=== PATIENT | male | born 1955 | race Caucasian/White ===

== ENCOUNTER 2018-12-28 05:14 | Observation (INO) | payer OTHER ==
[2018-12-28] MEDS ORDERED: MORPHINE 4 MG/ML SYR ONE (05:51)
[2018-12-28] MEDS ORDERED: ONDANSETRON 4 MG/2 ML VIAL ONE (05:52)
[2018-12-28 06:06] LABS: Protime INR 1.21
[2018-12-28 06:07] LABS: Absolute Lymphocytes (CBC) 1.6 K/uL (0.7-4.9); Absolute Monocytes 0.8 K/uL (0.1-1.3); Absolute Neutrophil 6.4 K/uL (1.8-8.0); Basophils % 0.5 % (0-1.3); Eosinophils % 1.4 % (0-4.4); Lymphocytes % 17.6 % (15.3-44.8); MPV 10.6 fL (7.6-11.3); Monocytes % 9.2 % (3.3-12.3); RBC Red Blood Cell Count 4.49 M/uL (4.33-5.43)
[2018-12-28 06:10] LABS: ALT/SGPT 26 U/L (12-78); AST/SGOT 18 U/L (15-37); Albumin 3.6 g/dL (3.4-5.0); Alkaline Phosphatase 65 U/L (45-117); BUN Blood Urea Nitrogen 14 mg/dL (7-18); Bicarbonate 24 mmol/L (21-32); Bilirubin Direct 0.4 mg/dL (0-0.2); Bilirubin Total 1.4 mg/dL (0.2-1.0); Glucose Level 133 mg/dL (74-106); Magnesium 1.8 mg/dL (1.8-2.4); NT PRO-BNP 91 pg/mL (<125); Potassium 3.8 mmol/L (3.5-5.1); Sodium Level 141 mmol/L (136-145); Troponin (Emerg Dept Use Only) < 0.02 ng/mL (0.0-0.045)
[2018-12-28] MEDS ORDERED: METHYLPREDNISOLONE 125 MG INJ ONE (06:45)
[2018-12-28] MEDS ORDERED: KETOROLAC 30 MG/ML INJ ONE (06:45)
[2018-12-28 07:39] LABS: Blood Morphology Comment NOT SEEN (NOT SEEN); Platelet Estimate DECR; Urine White Blood Cell Casts OK
--- NOTE | 2018-12-28 09:21 | EKG ---
Test Date: 2018-12-28 Test Time: 05:24:45 Civil Engineer Helper: JAX MEASUREMENT RESULTS: Intervals: Rate: 85 AL: 166 QRSD: 94 QT: 352 QTc: 418 [place]: P: 64 AL: 166 QRS: 45 T: 56 INTERPRETIVE STATEMENTS: Normal sinus rhythm Normal ECG Compared to ECG 01/06/2014 16:00:37 Early repolarization no longer present Electronically Signed On 12-28-18 09:21:03 CDT by Stone Guevara
--- NOTE | 2018-12-28 11:13 | RAD REPORT ---
EXAM DESCRIPTION: RAD - Chest Single View - 12/28/2018 6:20 am CLINICAL HISTORY: CHEST PAIN Chest pain. COMPARISON: CHEST PA AND LAT 2 VIEW dated 01/06/2014; CHEST PA AND LAT 2 VIEW dated 12/22/2010; CHEST PA AND LAT 2 VIEW dated 02/13/1997 FINDINGS: Portable technique limits examination quality. The lungs are emphysematous but grossly clear. The heart is normal in size. No displaced fractures. IMPRESSION: COPD.
--- NOTE | 2018-12-28 11:30 | ER ---
Nurse's Notes [facility] Name: Radu Coffey Age: 63 yrs Sex: Male : 1955 Arrival Date: 12/28/2018 Time: 05:16 Bed 18 Private MD: Martin Patel V Diagnosis: Chest pain, unspecified Presentation: 12/28 05:21 Presenting complaint: Patient states: that he is having chest pain that radiates up towards his collar bones, is shaky, and unalbe to take a deep breath. Denies any nausea or vomiting. Stopped smoking 10 days ago. Transition of care: patient was not received from another setting of care. Onset of symptoms was December 27, 2018. Risk Assessment: Do you want to hurt yourself or someone else? Patient reports no desire to harm self or others. Initial Sepsis Screen: Does the patient meet any 2 criteria? HR > 90 bpm. No. Patient's initial sepsis screen is negative. Does the patient have a suspected source of infection? No. Patient's initial sepsis screen is negative. Care prior to arrival: Medication(s) given: Tylenol, last at 0200. 05:21 Method Of Arrival: Ambulatory 05:21 Acuity: MOIRA 3 fc Historical: - Allergies: 05:26 Sulfa (Sulfonamide Antibiotics); fc - Home Meds: 05:26 omeprazole 20 mg Oral cpDR 1 cap once daily [Active]; fc - PMHx: 05:26 asbestosis; Cirrhosis; GALLSTONES; hepatitis B; Pleurisy; fc - PSHx: 05:26 Appendectomy; fc - Immunization history:: Last tetanus immunization: up to date Flu vaccine is up to date. - Social history:: Smoking status: Patient uses tobacco products, Patient uses street drugs, marijuana, Patient/guardian denies using alcohol. - Ebola Screening: : Patient negative for fever greater than or equal to 101.5 degrees Fahrenheit, and additional compatible Ebola Virus Disease symptoms Patient denies exposure to infectious person Patient denies travel to an Ebola-affected area in the 21 days before illness onset. Screenin:27 Abuse screen: Denies threats or abuse. Nutritional screening: No deficits noted. Tuberculosis screening: No symptoms or risk factors identified. Fall Risk None identified. Assessment: 05:45 General: Appears in no apparent distress. Behavior is appropriate for age. Pain: ea Complains of pain in chest Quality of pain is described as stabbing, Pain began 1 day ago. Aggravated by deep breathing. Neuro: Level of Consciousness is awake, alert, obeys commands, Oriented to person, place, time, situation. Cardiovascular: Heart tones S1 S2 present Patient's skin is warm and dry. Rhythm is sinus rhythm. Respiratory: Airway is patent Respiratory effort is even, unlabored, Respiratory pattern is regular, symmetrical. Derm: Skin is pink, warm \T\ dry. 06:51 Reassessment: Patient and/or family updated on plan of care and expected duration. Pain ea level reassessed. Patient is alert, oriented x 3, equal unlabored respirations, skin warm/dry/pink. 07:05 Reassessment: Patient appears in no apparent distress at this time. Patient and/or em family updated on plan of care and expected duration. Pain level reassessed. Patient is alert, oriented x 3, equal unlabored respirations, skin warm/dry/pink. pending admission Patient states feeling better. Patient states symptoms have improved. 07:48 Reassessment: Patient appears in no apparent distress at this time. Patient and/or em family updated on plan of care and expected duration. Pain level reassessed. Patient is alert, oriented x 3, equal unlabored respirations, skin warm/dry/pink. 10:00 Reassessment: request breakfast tray, provider notified, meal tray ordered. em 11:33 Reassessment: Patient appears in no apparent distress at this time. Patient and/or em family updated on plan of care and expected duration. Pain level reassessed. Patient is alert, oriented x 3, equal unlabored respirations, skin warm/dry/pink. pending room assignment. 12:35 Reassessment: Patient appears in no apparent distress at this time. Patient and/or em family updated on plan of care and expected duration. Pain level reassessed. Patient is alert, oriented x 3, equal unlabored respirations, skin warm/dry/pink. Dr. Pineda at bedside. 13:50 Reassessment: Patient appears in no apparent distress at this time. Patient and/or em family updated on plan of care and expected duration. Pain level reassessed. Patient is alert, oriented x 3, equal unlabored respirations, skin warm/dry/pink. Vital Signs: 05:26 BP 154 / 93; Pulse 103; Resp 18; Temp 98.5(O); Pulse Ox 96% on R/A; Weight 68.04 kg fc (R); Height 6 ft. 0 in. (182.88 cm) (R); Pain 9/10; 05:49 BP 130 / 74; Pulse 88; Resp 18; Pulse Ox 96% on R/A; ea 06:45 BP 108 / 70; Pulse 72; Resp 19; Pulse Ox 96% on R/A; ea 07:51 BP 119 / 86; Pulse 71; Resp 15; Pulse Ox 98% on R/A; em 10:00 BP 113 / 68; Pulse 62; Resp 18; Pulse Ox 97% on R/A; em 12:00 BP 117 / 74; Pulse 61; Resp 18; Pulse Ox 98% on R/A; em 13:50 BP 124 / 76; Pulse 64; Resp 18; Pulse Ox 97% on R/A; em 05:26 Body Mass Index 20.34 (68.04 kg, 182.88 cm) ED Course: 05:16 Patient arrived in ED. am2 05:16 Martin Patel MD is Private Physician. am2 05:22 Mario Goldman MD is Attending Physician. kdr 05:23 Triage completed. fc 05:26 Arm band placed on Patient placed in an exam room, on a stretcher. fc 05:27 Patient has correct armband on for positive identification. Placed in gown. Bed in low fc position. Call light in reach. crushed stone grader on. Pulse ox on. NIBP on. 05:39 Felipa Rich RN is Primary Nurse. ea 05:40 Inserted saline lock: 20 gauge in right antecubital area, using aseptic technique. ea Blood collected. 05:50 Patient maintains SpO2 saturation greater than 95% on room air. ea 06:20 XRAY Chest (1 view) In Process Unspecified. EDMS 06:50 Mathew Mera PA is PHCP. jmm 07:00 Report given to Jackie PRADHAN. ea 11:29 Martin Patel MD is Hospitalizing Provider. jmm 14:48 No provider procedures requiring assistance completed. Patient admitted, IV remains in em place. Administered Medications: 05:47 Drug: morphine 4 mg Route: IVP; Site: right antecubital; ea 06:15 Follow up: Response: No adverse reaction; Pain is decreased ea 05:47 Drug: Zofran 4 mg Route: IVP; Site: right antecubital; ea 06:15 Follow up: Response: No adverse reaction ea 06:33 CANCELLED (Duplicate Order): SOLU-Medrol 125 mg IVP once ea 06:33 CANCELLED (Duplicate Order): TORadol 30 mg IVP once ea 06:38 Drug: TORadol 30 mg Route: IVP; Site: right antecubital; ea 06:55 Follow up: Response: No adverse reaction ea 06:39 Drug: SOLU-Medrol 125 mg Route: IVP; Site: right antecubital; ea 06:54 Follow up: Response: No adverse reaction; Pain is decreased ea Outcome: 11:29 Decision to Hospitalize by Provider. william 15:11 Admitted to Med/surg accompanied by nurse, via wheelchair, room 427, with chart, Report tw2 called to LORNE Ferguson 15:11 Condition: stable 15:28 Patient left the ED. em Signatures: Dispatcher [employer] Mario Daniels MD MD kdr Mickail, Joel, PA PA Ese Obrien, RN RN Twan Monroy LVN LVN Jackie Kohli RN RN tw2 Tyesha Simmons Elena, RN RN alejandra
--- NOTE | 2018-12-28 11:30 | EDPHYS ---
Physician Documentation [facility] Name: Radu Coffey Age: 63 yrs Sex: Male : 1955 Arrival Date: 12/28/2018 Time: 05:16 Bed 18 Private MD: Martin Patel V ED Physician Mario Goldman HPI: 12/28 06:33 This 63 yrs old Male presents to ER via Ambulatory with complaints of Chest kdr Pain > 30 y/o. 06:33 The patient or guardian reports chest pain that is located primarily in the substernal kdr area, anterior chest wall, right. Onset: yesterday, at 16:00. The pain does not radiate. Associated signs and symptoms: Pertinent positives: shortness of breath, Pertinent negatives: abdominal pain, cough, diaphoresis, dizziness, headache, lower extremity pain, lower extremity swelling, lightheadedness, nausea, near syncope, palpitations, recent travel, syncope, vomiting. The chest pain is described as aching, dull, a pressure. Duration: The patient or guardian reports multiple episodes, that are intermittent, that wax and wane, Worse with deep breathing. Modifying factors: The symptoms are alleviated by remaining still, the symptoms are aggravated by activity, breathing, cough, deep breath. Severity of pain: At its worst the pain was severe in the emergency department the pain has improved moderately. Has had pleurisy in the past but he does not recall if this pain is similar. Historical: - Allergies: 05:26 Sulfa (Sulfonamide Antibiotics); fc - Home Meds: 05:26 omeprazole 20 mg Oral cpDR 1 cap once daily [Active]; fc - PMHx: 05:26 asbestosis; Cirrhosis; GALLSTONES; hepatitis B; Pleurisy; fc - PSHx: 05:26 Appendectomy; fc - Immunization history:: Last tetanus immunization: up to date Flu vaccine is up to date. - Social history:: Smoking status: Patient uses tobacco products, Patient uses street drugs, marijuana, Patient/guardian denies using alcohol. - Ebola Screening: : Patient negative for fever greater than or equal to 101.5 degrees Fahrenheit, and additional compatible Ebola Virus Disease symptoms Patient denies exposure to infectious person Patient denies travel to an Ebola-affected area in the 21 days before illness onset. ROS: 06:33 Constitutional: Negative for fever, chills, and weight loss, Eyes: Negative for injury, kdr pain, redness, and discharge, ENT: Negative for injury, pain, and discharge, Neck: Negative for injury, pain, and swelling, Respiratory: Negative for shortness of breath, cough, wheezing, and pleuritic chest pain, Abdomen/GI: Negative for abdominal pain, nausea, vomiting, diarrhea, and constipation, Back: Negative for injury and pain, : Negative for injury, bleeding, discharge, and swelling, MS/Extremity: Negative for injury and deformity, Skin: Negative for injury, rash, and discoloration, Neuro: Negative for headache, weakness, numbness, tingling, and seizure activity. Psych: Negative for depression, anxiety, suicide ideation, homicidal ideation, and hallucinations, Allergy/Immunology: Negative for hives, rash, and allergies, Endocrine: Negative for neck swelling, polydipsia, polyuria, polyphagia, and marked weight changes, Hematologic/Lymphatic: Negative for swollen nodes, abnormal bleeding, and unusual bruising. 06:33 Cardiovascular: Positive for chest pain, with cough, with movement, of the right clavicle, anterior aspect of right upper chest and mid-sternal area, Negative for edema, orthopnea, palpitations, paroxysmal nocturnal dyspnea, acute changes. Exam: 06:33 Constitutional: This is a well developed, well nourished patient who is awake, alert, kdr and in no acute distress. Head/Face: Normocephalic, atraumatic. Eyes: Pupils equal round and reactive to light, extra-ocular motions intact. Lids and lashes normal. Conjunctiva and sclera are non-icteric and not injected. Cornea within normal limits. Periorbital areas with no swelling, redness, or edema. Neck: Trachea midline, no thyromegaly or masses palpated, and no cervical lymphadenopathy. Supple, full range of motion without nuchal rigidity, or vertebral point tenderness. No Meningismus. Chest/axilla: Normal chest wall appearance and motion. Nontender with no deformity. No lesions are appreciated. Cardiovascular: Regular rate and rhythm with a normal S1 and S2. No gallops, murmurs, or rubs. Normal PMI, no JVD. No pulse deficits. Respiratory: Lungs have equal breath sounds bilaterally, clear to auscultation and percussion. No rales, rhonchi or wheezes noted. No increased work of breathing, no retractions or nasal flaring. Abdomen/GI: Soft, non-tender, with normal bowel sounds. No distension or tympany. No guarding or rebound. No evidence of tenderness throughout. Back: No spinal tenderness. No costovertebral tenderness. Full range of motion. Skin: Warm, dry with normal turgor. Normal color with no rashes, no lesions, and no evidence of cellulitis. MS/ Extremity: Pulses equal, no cyanosis. Neurovascular intact. Full, normal range of motion. Neuro: Awake and alert, GCS 15, oriented to person, place, time, and situation. Cranial nerves II-XII grossly intact. Motor strength 5/5 in all extremities. Sensory grossly intact. Cerebellar exam normal. Normal gait. Psych: Awake, alert, with orientation to person, place and time. Behavior, mood, and affect are within normal limits. Vital Signs: 05:26 BP 154 / 93; Pulse 103; Resp 18; Temp 98.5(O); Pulse Ox 96% on R/A; Weight 68.04 kg fc (R); Height 6 ft. 0 in. (182.88 cm) (R); Pain 9/10; 05:49 BP 130 / 74; Pulse 88; Resp 18; Pulse Ox 96% on R/A; ea 06:45 BP 108 / 70; Pulse 72; Resp 19; Pulse Ox 96% on R/A; ea 07:51 BP 119 / 86; Pulse 71; Resp 15; Pulse Ox 98% on R/A; em 10:00 BP 113 / 68; Pulse 62; Resp 18; Pulse Ox 97% on R/A; em 12:00 BP 117 / 74; Pulse 61; Resp 18; Pulse Ox 98% on R/A; em 13:50 BP 124 / 76; Pulse 64; Resp 18; Pulse Ox 97% on R/A; em 05:26 Body Mass Index 20.34 (68.04 kg, 182.88 cm) MDM: 06:50 [facility] 09:38 HEART Score: History: Moderately Suspicious (1), ECG: Normal (0), Age: > or = 65 years [facility] (2), Risk Factors: 1 or 2 risk factors (1), [Active Smoker] Troponin: < or = 1 x Normal Limit (0), Total Score =. Data reviewed: vital signs, nurses notes. 11:20 ED course: I discussed the patient with Dr. Goldman whom recommended admission for the [facility] patient. I discussed the patient with Dr. Patel whom accepted admission. . 12/28 05:22 Order name: Basic Metabolic Panel; Complete Time: 06:24 kdr 12/28 05:22 Order name: CBC with Diff; Complete Time: 07:40 kdr 12/28 05:22 Order name: LFT's; Complete Time: 06:24 kdr 12/28 05:22 Order name: Magnesium; Complete Time: 06:24 kdr 12/28 05:22 Order name: NT PRO-BNP; Complete Time: 06:24 kdr 12/28 05:22 Order name: PT-INR; Complete Time: 06:24 kdr 12/28 05:22 Order name: Troponin (emerg Dept Use Only); Complete Time: 06:24 kdr 12/28 06:11 Order name: CBC Smear Scan; Complete Time: 07:40 EDMS 12/28 12:23 Order name: Basic Metabolic Panel EDMS 12/28 12:23 Order name: Basic Metabolic Panel EDMS 12/28 12:23 Order name: CBC with Automated Diff EDMS 12/28 12:23 Order name: CBC with Automated Diff EDMS 12/28 12:23 Order name: Troponin I EDMS 12/28 12:23 Order name: Troponin I; Complete Time: 13:25 EDMS 12/28 05:22 Order name: XRAY Chest (1 view); Complete Time: 11:14 kdr 12/28 05:22 Order name: EKG; Complete Time: 05:23 kdr 12/28 05:22 Order name: Cardiac monitoring; Complete Time: 05:39 kdr 12/28 05:22 Order name: EKG - Nurse/Tech; Complete Time: 05:39 kdr 12/28 10:02 Order name: Diet Regular; Complete Time: 10:02 em 12/28 12:23 Order name: EKG Electrocardiogram EDMS 12/28 12:23 Order name: EKG Electrocardiogram EDMS 12/28 12:23 Order name: EKG Electrocardiogram EDMS 12/28 12:23 Order name: EKG Electrocardiogram EDMS 12/28 12:23 Order name: Troponin I EDMS 12/28 05:22 Order name: IV Saline Lock; Complete Time: 05:40 kdr 12/28 05:22 Order name: Labs collected and sent; Complete Time: 05:40 kdr 12/28 05:22 Order name: O2 Per Protocol; Complete Time: :40 kdr 12/28 05:22 Order name: O2 Sat Monitoring; Complete Time: 05:40 kdr Administered Medications: 05:47 Drug: morphine 4 mg Route: IVP; Site: right antecubital; ea 06:15 Follow up: Response: No adverse reaction; Pain is decreased ea 05:47 Drug: Zofran 4 mg Route: IVP; Site: right antecubital; ea 06:15 Follow up: Response: No adverse reaction ea 06:33 CANCELLED (Duplicate Order): SOLU-Medrol 125 mg IVP once ea 06:33 CANCELLED (Duplicate Order): TORadol 30 mg IVP once ea 06:38 Drug: TORadol 30 mg Route: IVP; Site: right antecubital; ea 06:55 Follow up: Response: No adverse reaction ea 06:39 Drug: SOLU-Medrol 125 mg Route: IVP; Site: right antecubital; ea 06:54 Follow up: Response: No adverse reaction; Pain is decreased ea Disposition: 12/28/18 11:29 Hospitalization ordered by Martin Patel for Observation. Preliminary diagnosis is Chest pain, unspecified. - Bed requested for Telemetry/MedSurg (observation). - Status is Observation. em - Condition is Stable. - Problem is new. - Symptoms have improved. UTI on Admission? No Addendum: 12/30/2018 06:47 Co-signature as Attending Physician, Mario Goldman MD I agree with the assessment and k dr plan of care. Signatures: Dispatcher [employer] Vira Rodriguez RN RN dw Rittger, Kevin, MD MD kdr Mickail, Joel, PA PA jmm Chretien, Felicia RN Twan Rajan, SUBSTATION ELECTRICIAN SUBSTATION ELECTRICIAN Felipa Turner RN RN ea Corrections: (The following items were deleted from the chart) 12/28 06:33 06:33 SOLU-Medrol 125 mg IVP once ordered. ea ea 06:33 06:33 TORadol 30 mg IVP once ordered. ea ea 11:29 11:20 ED course: I discussed the patient with Dr. Goldman whom recommended [facility] for the [facility]. Dr. Patel was initially contacted at 0700 with subsequent calls every 30 minutes [address] answer[address] Ceja was contacted to confirm patient biller coverage. vehicle maintenance supervisor was notified as well. . [facility] 14:24 11:29 Hospitalization Ordered by Martin Patel MD for Observation. Preliminary diagnosis dw is Chest pain, unspecified. Bed requested for Telemetry/MedSurg (observation). Status is Observation. Condition is Stable. Problem is new. Symptoms have improved. UTI on Admission? No. [facility] 15:28 14:24 12/28/2018 11:29 Hospitalization Ordered by Martin Patel MD for Observation. em Preliminary diagnosis is Chest pain, unspecified. Bed requested for Telemetry/MedSurg (observation). Status is Observation. Condition is Stable. Problem is new. Symptoms have improved. UTI on Admission? No. dw
[2018-12-28] MEDS ORDERED: ACETAMINOPHEN 500 MG TAB PO PRN (12:20)
[2018-12-28 16:14] VITALS: BMI 2987.8
--- NOTE | 2018-12-28 17:22 | P.HP ---
Certification for Inpatient Patient admitted to: Observation With expected LOS: <2 Midnights Practitioner: I am a practitioner with admitting privileges, knowledge of patient current condition, hospital course, and medical plan of care. Services: Services provided to patient in accordance with Admission requirements found in Title 42 Section 412.3 of the Code of Federal Regulations Patient History Date of Service: 12/28/18 Reason for admission: CHEST PAIN History of Present Illness: MR. SOMERS IS FORMER SMOKER WHO HAS COPD, CIRRHOSIS OF LIVER FROM HEP C. HE COMES WITH CHEST PAIN THAT IS LIKE HEAVINESS WITHOUT RADIATION, DIAPHORESIS, NAUSEA, VOMITING OR FATIGUE. HE DESCRIBES IT PLEURITIC CHEST PAIN, MORE ON MOVING AND SITTING UP. THIS WENT ON FOR HOURS. Allergies Sulfa (Sulfonamide Antibiotics) Allergy (Verified 01/06/14 15:30) Itching/Hives/Rash Home Medications: Cystine [l-Cystine] 1 gm PO PRN PRN 12/28/18 Omeprazole 25 mg PO DAILY 12/28/18 Tenofovir Alafenamide Fumarate [Vemlidy] 25 mg PO DAILY 12/28/18 - Past Medical/Surgical History Diabetic: No -: liver disease -: gerd -: hepatitis B -: appy, r thumb repair, - Family History Father Notes: congestive heart failure Mother Notes: pheumatoid arthritis - Social History Smoking Status: Former smoker Alcohol use: No CD- Drugs: Yes Caffeine use: Yes Place of Residence: Home Review of Systems 10-point ROS is otherwise unremarkable General: Weakness Physical Examination - Vital Signs Temperature: 97.1 F Blood Pressure: 122/66 Pulse: 67 Respirations: 18 Pulse Ox (%): 96 - Physical Exam General: Alert, Acute distress HEENT: Atraumatic, PERRLA, Mucous membr. moist/pink, EOMI, Sclerae nonicteric Neck: Supple, 2+ carotid pulse no bruit, No LAD, Without JVD or thyroid abnormality Respiratory: Clear to auscultation bilaterally, Normal air movement Cardiovascular: Regular rate/rhythm, Normal S1 S2 Gastrointestinal: Normal bowel sounds, No tenderness Musculoskeletal: No tenderness Integumentary: No rashes Neurological: Normal gait, Normal speech, Normal strength at 5/5 x4 extr, Normal tone, Normal affect Lymphatics: No axilla or inguinal lymphadenopathy - Studies Laboratory Data (last 24 hrs) 12/28/18 05:39: PT 14.2 H, INR 1.21 12/28/18 05:39: WBC 9.0, Hgb 14.3, Hct 42.0, Plt Count 74 L 12/28/18 05:39: Sodium 141, Potassium 3.8, BUN 14, Creatinine 0.84, Glucose 133 H, Magnesium 1.8, Total Bilirubin 1.4 H, AST 18, ALT 26, Alkaline Phosphatase 65 Assessment and Plan - Problems (Diagnosis) (1) Pleuritic chest pain Current Visit: Yes Status: Acute Plan: PAIN HAS ATYPICAL CHARACTER. HE IS A HEAVY FORMER SMOKER. HAS BEEN ABLE TO QUIT USING TABEX. HE NEEDS ST TEST. HE HAS SEEN DR ALARCON BEFORE. DC HOME WITH QUEZADA IN AM. HE ALSO HAS CIRRHOSIS FROM HEP C AND HAS BEEN TREATED. - Advance Directives Does patient have a Living Will: Yes Does patient have a Durable POA for Healthcare: No
[2018-12-28] MEDS: MELATONIN 5 MG TABLET PO PRN (23:47)
[2018-12-28] MEDS: DOCUSATE CALCIUM 240 MG CAP PO SCH (23:47)
[2018-12-29 06:32] LABS: Absolute Lymphocytes (CBC) 1.2 K/uL (0.7-4.9); Absolute Monocytes 0.8 K/uL (0.1-1.3); Absolute Neutrophil 12.5 K/uL (1.8-8.0); Basophils % 0.1 % (0-1.3); Eosinophils % 0.1 % (0-4.4); Hematocrit 40.8 % (39.6-49.0); Lymphocytes % 8.5 % (15.3-44.8); MPV 10.7 fL (7.6-11.3); Monocytes % 5.5 % (3.3-12.3); RBC Red Blood Cell Count 4.35 M/uL (4.33-5.43)
[2018-12-29 06:47] LABS: BUN Blood Urea Nitrogen 28 mg/dL (7-18); Bicarbonate 28 mmol/L (21-32); Glucose Level 134 mg/dL (74-106); Potassium 4.1 mmol/L (3.5-5.1); Sodium Level 141 mmol/L (136-145)
[2018-12-29 08:50] LABS: Blood Morphology Comment NOT SEEN (NOT SEEN); Platelet Estimate DECR
[2018-12-29] MEDS: ASPIRIN EC 81 MG TAB PO SCH (09:42)
[2018-12-29] MEDS: DOCUSATE CALCIUM 240 MG CAP PO SCH (09:42)
--- NOTE | 2018-12-29 13:49 | P.PN ---
Subjective Date of Service: 12/29/18 Chief Complaint: CHEST PAIN Subjective: C/O voiced HE HAD ONE MORE EPISODE OF PAIN IN LOWER CHEST AFTER FOOD TODAY. HE HAS HAD GALL BLADDER, CHR CHOLECYSTITIS BEFORE BUT [facility] ADVISED AGAINST SURGERY GALL BLADDER MAY HAVE ADHERED TO LIVER NOW WITH CIRRHOSIS. Review of Systems 10-point ROS is otherwise unremarkable Physical Examination - Vital Signs Temperature: 98.1 F Blood Pressure: 116/57 Pulse: 68 Respirations: 18 Pulse Ox (%): 96 - Physical Exam General: Alert, Mild distress HEENT: Atraumatic, PERRLA, EOMI Neck: Supple, JVD not distended Respiratory: Clear to auscultation bilaterally, Normal air movement Cardiovascular: Regular rate/rhythm, Normal S1 S2 Gastrointestinal: Normal bowel sounds, No tenderness Musculoskeletal: No tenderness Integumentary: No rashes Neurological: Normal speech, Normal tone, Normal affect Lymphatics: No axilla or inguinal lymphadenopathy - Studies Medications List Reviewed: Yes Assessment And Plan - Current Problems (Diagnosis) (1) Pleuritic chest pain Current Visit: Yes Status: Acute Plan: PAIN HAS ATYPICAL CHARACTER. HE IS A HEAVY FORMER SMOKER. HAS BEEN ABLE TO QUIT USING TABEX. HE NEEDS ST TEST. HE HAS SEEN DR ALARCON BEFORE. DC HOME WITH QUEZADA IN AM. HE ALSO HAS CIRRHOSIS FROM HEP C AND HAS BEEN TREATED. (2) Cholecystitis Current Visit: No Status: Chronic Plan: POSSIBLE WITH RECURRENT PAIN. IV ABX. SONOGRAM I WILL CALL DR PUENTE IN AM.
[2018-12-29] MEDS: CEFOXITIN/SWI 2gm 2 GM/20 ML SYR IV SCH (16:11)
--- NOTE | 2018-12-29 19:42 | RAD REPORT ---
EXAM DESCRIPTION: US - Abdomen Exam Complete - 12/29/2018 7:31 pm CLINICAL HISTORY: Abdominal pain COMPARISON: December 2017 cat scan FINDINGS: A cirrhotic liver is again seen. A discrete lesion is not visualized. Varices are present within the left upper quadrant A 9 millimeter gallstone. The gallbladder wall is not thickened. The biliary tree is normal caliber. The pancreas was not well visualized secondary overlying bowel gas but appears grossly normal. The right kidney measures 12 centimeters with a normal echotexture. The left kidney measures 12 centimeters with a normal echotexture. The spleen measures 15 centimeters. The abdominal aorta and inferior vena cava appear unremarkable IMPRESSION: Cirrhosis with mild to moderate splenomegaly Cholelithiasis without cholecystitis
[2018-12-29 22:17] LABS: Urine Appearance CLEAR; Urine Bilirubin NEGATIVE (NEG); Urine Blood NEGATIVE (NEG); Urine Color YELLOW; Urine Glucose NEGATIVE (NEG); Urine Microscopic Reflex NO UMIC; Urine Protein NEGATIVE (NEG); Urine Specific Gravity 1.025 (1.005-1.030); Urine Urobilinogen 0.2 mg/dL (0.2-1.0)
[2018-12-29] MEDS: MELATONIN 5 MG TABLET PO PRN (22:23)
[2018-12-30] MEDS: CEFOXITIN/SWI 2gm 2 GM/20 ML SYR IV SCH ×3 (00:38→16:14)
[2018-12-30] MEDS: DOCUSATE CALCIUM 240 MG CAP PO SCH (09:03)
[2018-12-30] MEDS: ASPIRIN EC 81 MG TAB PO SCH (09:03)
[2018-12-30 10:39] VITALS: O2SAT 98
[2018-12-30 13:13] LABS: Absolute Lymphocytes (CBC) 2.1 K/uL (0.7-4.9); Absolute Monocytes 0.5 K/uL (0.1-1.3); Absolute Neutrophil 5.8 K/uL (1.8-8.0); Basophils % 0.8 % (0-1.3); Eosinophils % 3.5 % (0-4.4); Hematocrit 42.5 % (39.6-49.0); Lymphocytes % 23.5 % (15.3-44.8); MPV 10.3 fL (7.6-11.3); Monocytes % 6.1 % (3.3-12.3); RBC Red Blood Cell Count 4.56 M/uL (4.33-5.43)
--- NOTE | 2018-12-30 13:16 | RAD REPORT ---
EXAM DESCRIPTION: NM - Hepatobiliary System W/ Ph - 12/30/2018 1:06 pm CLINICAL HISTORY: Abdominal pain TECHNIQUE: The patient was administered 6.4 millicuries technetium Choletec intravenous and images o f the abdomen obtained for 30 minutes. 1.1 microgram Kinevac administered intravenously And images of the gallbladder obtained for 30 minutes FINDINGS: Liver demonstrates prompt radiotracer uptake. Biliary tree is normal caliber Activity is seen within the gallbladder by 10 minutes. Uptake is seen within small bowel. After the administration of CCK ejection fraction equals 74% Patient was asymptomatic IMPRESSION: No evidence of acute cholecystitis Normal gallbladder ejection fraction 74%
[2018-12-30 13:27] LABS: Potassium 4.3 mmol/L (3.5-5.1)
[2018-12-30 13:30] LABS: Albumin 3.5 g/dL (3.4-5.0); Bilirubin Direct 0.3 mg/dL (0-0.2)
[2018-12-30 13:46] LABS: Blood Morphology Comment NOT SEEN (NOT SEEN); Platelet Estimate DECR; Urine White Blood Cell Casts OK
[2018-12-30 17:06] VITALS: BP 108/60; TEMP 98.1
--- NOTE | 2018-12-30 17:38 | P.DS ---
Admission Date: 12/28/18 Discharge Date: 12/30/18 Disposition: ROUTINE DISCHARGE Discharge Condition: FAIR Reason for Admission: CHEST PAIN - Problems (1) Pleuritic chest pain Current Visit: Yes Status: Acute (2) Cholecystitis Current Visit: No Status: Chronic Brief History of Present Illness: MR. SOMERS IS FORMER SMOKER WHO HAS COPD, CIRRHOSIS OF LIVER FROM HEP C. HE COMES WITH CHEST PAIN THAT IS LIKE HEAVINESS WITHOUT RADIATION, DIAPHORESIS, NAUSEA, VOMITING OR FATIGUE. HE DESCRIBES IT PLEURITIC CHEST PAIN, MORE ON MOVING AND SITTING UP. THIS WENT ON FOR HOURS. MR. SOMERS IS A LOT BETTER. HIS HIDA SCAN IS NEGATIVE. HE HAD PLEURISY SYMPTOMS. HIS EKG IS NORMAL, HIS CE ARE NEGATIVE. HE IS STABLE FOR DISCHARGE AND WILL FU WITH DR. ALARCON AND DR. TOSCNAO. Vital Signs/Physical Exam: Temp Pulse Resp BP Pulse Ox 98.1 F 62 16 108/60 98 12/30/18 16:00 12/30/18 16:00 12/30/18 16:00 12/30/18 16:00 12/30/18 16:00 Laboratory Data at Discharge: WBC 8.8 K/uL (4.3-10.9) D 12/30/18 13:00 Hgb 14.4 g/dL (13.6-17.9) 12/30/18 13:00 Hct 42.5 % (39.6-49.0) 12/30/18 13:00 Plt Count 96 K/uL (152-406) L 12/30/18 13:00 PT 14.2 SECONDS (9.5-12.5) H 12/28/18 05:39 INR 1.21 12/28/18 05:39 Sodium 143 mmol/L (136-145) 12/30/18 13:00 Potassium 4.3 mmol/L (3.5-5.1) 12/30/18 13:00 BUN 20 mg/dL (7-18) H 12/30/18 13:00 Creatinine 1.06 mg/dL (0.55-1.3) 12/30/18 13:00 Glucose 96 mg/dL (74-106) 12/30/18 13:00 Magnesium 1.8 mg/dL (1.8-2.4) 12/28/18 05:39 Total Bilirubin 1.0 mg/dL (0.2-1.0) 12/30/18 13:00 AST 19 U/L (15-37) 12/30/18 13:00 ALT 30 U/L (12-78) 12/30/18 13:00 Alkaline Phosphatase 56 U/L (45-117) 12/30/18 13:00 Troponin I < 0.02 ng/mL (0.0-0.045) 12/28/18 16:17 Home Medications: Cystine [l-Cystine] 1 gm PO PRN PRN 12/28/18 Omeprazole 25 mg PO DAILY 12/28/18 Tenofovir Alafenamide Fumarate [Vemlidy] 25 mg PO DAILY 12/28/18 Patient Discharge Instructions: FREDDY YOUR HIDA SCAN IS NORMAL. YOU CAN VISIT DR. ALARCON FOR HEART CHECK UP AND DR TOSCANO FOR EGD.
== END 2018-12-30 18:04 | disposition home or self-care (01) ==
LOC: ER 05:14 → ERHOLD 12:20 → 4TH 15:15
PROVIDERS: ADMIT Internal Medicine; ATTEND Internal Medicine
DX: R07.9 Chest pain, unspecified (principal); K81.1 Chronic cholecystitis; K74.60 Unspecified cirrhosis of liver; B19.20 Unspecified viral hepatitis C without hepatic coma; J44.9 Chronic obstructive pulmonary disease, unspecified; Z87.891 Personal history of nicotine dependence; Z88.2 Allergy status to sulfonamides
CPT/HCPCS: 93005; 85025 ×3; 80048 ×3; 36415 ×3; 83735; 85610; 80076 ×2; 81003; 84484 ×3; 83880; 71045; 76700; 78227; 96375; 96374; 99285; J0694 ×2; J2930; J2405; J2805; A9537; G0378 ×2

== ENCOUNTER 2019-01-21 08:45 | Day surgery (SDC) | payer OTHER ==
[2019-01-21] MEDS ORDERED: Ringers Lactate 1,000 ML IV ONE (09:08)
[2019-01-21] MEDS ORDERED: LIDOCAINE 1% MPF 5 ML VIAL ONE (10:40)
[2019-01-21] MEDS ORDERED: PROPOFOL 200 MG/20 ML VIAL IV ONE (10:40)
[2019-01-21 11:01] VITALS: TEMP 97.8
[2019-01-21 11:02] VITALS: O2SAT 99
[2019-01-21 11:06] VITALS: BP 94/43
--- NOTE | 2019-01-21 11:32 | ENDO RPT ---
[address], [address] EGD PROCEDURE REPORT EXAM DATE: 01/21/2019 PATIENT NAME: Radu Coffey MR#: [id number] BIRTHDATE: 1955 ATTENDING: Frank Barraza Dr STATUS: outpatient SLD INCLUSION TEACHER: Christine Smith RN and Radha Hammond RN INDICATIONS: The patient is a 64 yr old Male here for an EGD due to screening for esophageal varices, cirrhosis of liver due to chronic HBV PROCEDURE PERFORMED: EGD with biopsy MEDICATIONS: Per Anesthesia. TOPICAL ANESTHETIC: none CONSENT: The patient understands the risks and benefits of the procedure and understands that these risks include, but are not limited to: sedation, allergic reaction, infection, perforation and/or bleeding. Alternative means of evaluation and treatment include, among others: physical exam, x-rays, and/or surgical intervention. The patient elects to proceed with this endoscopic procedure. DESCRIPTION OF PROCEDURE: During intra-op preparation period all mechanical medical equipment was checked for proper function. Hand hygiene and appropriate measures for infection prevention was taken. Procedure, possible complications, and alternatives including but not limited to the possibility of bleeding, perforation, tear, infection, sepsis, need for surgery, need for blood transfusion, and anesthesia related complications were explained to the patient. After the risks, benefits and alternatives of the procedure were thoroughly explained, Informed consent was verified, confirmed and timeout was successfully executed by the treatment team. The patient was placed in the left lateral position. The patient was anesthetized with topical anesthesia. Through the anesthetized oropharyngeal area, the scope was passed without any difficulty. The EG-[id number] ([id number]) endoscope was introduced through the mouth and advanced to the third portion of the duodenum. Retroflexed views revealed a small hiatal hernia. The gastroscope was then slowly withdrawn and removed. LA class A esophagitis was found in the lower esophagus. A small hiatal hernia was found Gastropathy was found in the body of the stomach. Mild atrophic gastritis was found in the antrum. Multiple biopsies were obtained and sent to pathology. Mild duodenitis was found in the bulb of the duodenum. ADVERSE EVENTS: There were no complications. IMPRESSIONS: 1. LA class A esophagitis in the lower esophagus 2. Small hiatal hernia 3. Portal hypertensive gastropathy in the body of the stomach 4. Mild atrophic gastritis in the antrum, s/p biopsies 5. Mild duodenitis in the bulb of the duodenum 6. No esophageal varices identified RECOMMENDATIONS: 1. await biopsy results 2. acid suppression therapy REPEAT EXAM: Return in 2 year(s) for EGD. Frank Barraza Dr eSigned: Frank Barraza Dr 01/21/2019 10:49 AM cc: Martin Patel CPT CODES: ICD9 CODES: PATIENT NAME: Radu Coffey MR#: [id number]
== END 2019-01-21 11:07 | disposition home or self-care (01) ==
LOC: OR 08:45
PROVIDERS: ATTEND Internal Medicine Gastroenterology
PROC: 0DB78ZX Excision of Stomach, Pylorus, Via Natural or Artificial Opening Endoscopic, Diagnostic (ICD-10-PCS; principal; 2019-01-21 10:00)
DX: K29.50 Unspecified chronic gastritis without bleeding (principal); K74.69 Other cirrhosis of liver; K76.6 Portal hypertension; K31.89 Other diseases of stomach and duodenum; K44.9 Diaphragmatic hernia without obstruction or gangrene; K29.80 Duodenitis without bleeding; K20.9 Esophagitis, unspecified; J44.9 Chronic obstructive pulmonary disease, unspecified; Z86.19 Personal history of other infectious and parasitic diseases; Z79.899 Other long term (current) drug therapy
CPT/HCPCS: 43239; 88312; 88305; J2704